=== PATIENT | female | born 2000 | race Caucasian/White ===

== ENCOUNTER 2023-06-27 10:23 | Outpatient (CLI) | payer BC, SELFPAY | END 2023-06-27 10:24 | disposition home or self-care (01) | PROVIDERS: PCP Physician Assistant Medical; Visit Provider Physician Assistant Medical | DX: Z13.220 Encounter for screening for lipoid disorders (principal); K52.9 Noninfective gastroenteritis and colitis, unspecified; Z13.29 Encounter for screening for other suspected endocrine disorder | CPT/HCPCS: 80053; 80061; 82306; 83516; 84443 ==

== ENCOUNTER 2023-12-02 14:30 | Outpatient (CLI) | payer BC, SELFPAY | END 2023-12-02 14:31 | disposition home or self-care (01) | LOC: LKVREF 14:32 | PROVIDERS: PCP Physician Assistant Medical; Visit Provider Physician Assistant Medical | DX: E78.5 Hyperlipidemia, unspecified (principal); E66.9 Obesity, unspecified | CPT/HCPCS: 80061 ==